=== PATIENT | male | born 1985 | race Caucasian/White ===

== ENCOUNTER 2019-05-21 02:15 | Emergency (ER) | payer SELFPAY ==
[2019-05-21 02:25] VITALS: BP 150/97
[2019-05-21 02:59] LABS: MUDS CUTOFF CONCENTRATIONS CUTOFF CONC BELOW:
--- NOTE | 2019-05-21 03:06 | ED Physician Documentation ---
PD HPI CHEST PAIN - Stated complaint Stated Complaint: CP/VOMITING - Chief complaint Chief Complaint: Cardiac - History obtained from History obtained from: Patient - History of Present Illness Timing - onset: How many minutes ago (25), Today Timing - onset during: Light activity (getting ready for bed. Denies drug use. Onset of chest pain and dyspnea, feeling anxious.) Timing - details: Abrupt onset, Still present Quality: Tightness, Aching Location: Left chest Radiation: Neck Improved by: No: Rest Worsened by: No: Inspiration Associated symptoms: Shortness of air. No: Nausea, Cough Similar symptoms before: Has not had sx before Review of Systems Unable to obtain: Uncooperative (he was not wanting to answer many questions.) PD PAST MEDICAL HISTORY - Past Medical History Cardiovascular: None Respiratory: None - Allergies Allergies/Adverse Reactions: Allergies Allergy/AdvReac Type Severity Reaction Status Date / Time No Known Drug Allergies Allergy Verified 05/21/19 02:25 - Social History Does the pt smoke?: Yes Does the pt drink ETOH?: Yes Does the pt have substance abuse?: Yes Substance Use and Type: Marijuana, Other (he denies meth use) PD ED PE NORMAL - Vitals Vital signs reviewed: Yes - General General: Alert and oriented X 3, Well developed/nourished, Other (Anxious and tachycardic) - HEENT HEENT: Atraumatic - Cardiac Cardiac: No: RRR (tachycardic but regular) - Respiratory Respiratory: Clear bilaterally - Derm Derm: Normal color, Warm and dry - Neuro Neuro: Alert and oriented X 3, No motor deficit, Normal speech Eye Opening: Spontaneous Motor: Obeys Commands Verbal: Oriented GCS Score: 15 - Psych Psych: No: Normal affect (anxious) Results - Vitals Vitals: Vital Signs - 24 hr 05/21/19 02:23 Temperature 37.0 C Heart Rate 105 H Respiratory 19 Rate Blood Pressure 150/97 H O2 Saturation 97 Oxygen O2 Source Room air - EKG (time done) 02:30 Rate: Rate (enter#) (103) Rhythm: Sinus tachycardia, Other (lots of motion artifact.) [place]: Normal Intervals: Normal [place] QRS: Normal Ischemia: Normal ST segments. No: ST elevation c/w ischemia, ST depression - Labs Labs: Laboratory Tests 05/21/19 02:15 Urine Opiates Screen NEGATIVE Ur Oxycodone Screen NEGATIVE Urine Methadone Screen NEGATIVE Ur Propoxyphene Screen NEGATIVE Ur Barbiturates Screen NEGATIVE Ur Tricyclics Screen NEGATIVE Ur Phencyclidine Scrn NEGATIVE Ur Amphetamine Screen POSITIVE H U Methamphetamines Scrn POSITIVE H U Benzodiazepines Scrn NEGATIVE Urine Cocaine Screen NEGATIVE U Cannabinoids Screen POSITIVE H PD MEDICAL DECISION MAKING - ED course Complexity details: re-evaluated patient (Patient is having some chest discomfort tachycardia and anxious. Presume its related to substance abuse and drug side effects. He does seem stable and is alert and oriented adequately to have the choice to leave without any further treatment or evaluation. He is encouraged to return if he has worsening symptoms. He is encouraged not to use drugs.), considered differential (As I went into see the patient, he was actually feeling that he wanted to be leaving. His chest discomfort was improving. We talked briefly and he was oriented and conversant. He was very anxious. He is still somewhat tachycardic but oxygenation and blood pressure were adequate. He reiterated that he at this point would prefer to just be discharged and leave the hospital. I offered doing some other tests for him to ensure no signs of heart injury or problems and also to provide medication to help with the anxiety and discomfort. He affirmed that he would rather just leave.), d/w patient Departure - Departure Disposition: ED [place] Clinical Impression: Atypical chest pain, Anxiety Condition: Stable Record reviewed to determine appropriate education?: Yes Instructions: ED Chest Pain Atypical Unkn Cause Comments: Return if you decide you would like further evaluation of your chest discomfort. Stay well-hydrated. We are happy to further treat and assess you if you are having continued symptoms.
[2019-05-21 03:11] LABS: AMPHETAMINE SCREEN,URINE POSITIVE (NEGATIVE); BENZODIAZEPINES SCREEN, URINE NEGATIVE (NEGATIVE); COCAINE SCREEN URINE NEGATIVE (NEGATIVE); METHADONE SCREEN, URINE NEGATIVE (NEGATIVE); METHAMPHETAMINES SCREEN, URINE POSITIVE (NEGATIVE); OPIATE SCREEN, URINE NEGATIVE (NEGATIVE); OXYCODONE SCREEN, URINE NEGATIVE (NEGATIVE); PROPOXYPHENE SCREEN, URINE NEGATIVE (NEGATIVE); TRICYCLIC ANTIDEPRESSANT,URINE NEGATIVE (NEGATIVE)
== END 2019-05-21 03:30 | disposition left against medical advice (07) ==
LOC: ED 02:15
DX: R07.89 Other chest pain (principal); F41.9 Anxiety disorder, unspecified; R00.0 Tachycardia, unspecified; F17.200 Nicotine dependence, unspecified, uncomplicated
CPT/HCPCS: 80306; 93005; 99281; 99284

== ENCOUNTER 2020-02-16 03:48 | Emergency (ER) | payer SELFPAY ==
--- NOTE | 2020-02-16 03:51 | ED Physician Documentation ---
History of Present Illness - Stated complaint Stated Complaint: SOA - History obtained from History obtained from: Police (patient eloped prior to my evaluation. per police they state they brought him in because they found him arguing in the road with a friend. the remainder of the history is unknown as the patient has eloped prior to my evaluation of this patient.) Review of Systems Unable to obtain: Other (patient eloped) PD PAST MEDICAL HISTORY - Past Medical History Cardiovascular: None Respiratory: None - Allergies Allergies/Adverse Reactions: Allergies Allergy/AdvReac Type Severity Reaction Status Date / Time No Known Drug Allergies Allergy Verified 05/21/19 02:25 - Social History Does the pt smoke?: Yes Does the pt drink ETOH?: Yes Does the pt have substance abuse?: Yes Results - Vitals Vitals: Oxygen O2 Source Room air PD MEDICAL DECISION MAKING - ED course Complexity details: other (patient eloped) Departure - Departure Disposition: ED El[facility]
== END 2020-02-16 04:01 | disposition left against medical advice (07) ==
LOC: ED 03:48
DX: Z53.21 Procedure and treatment not carried out due to patient leaving prior to being seen by health care provider (principal)

== ENCOUNTER 2020-05-02 11:00 | Emergency (ER) | payer SELFPAY ==
--- NOTE | 2020-05-02 12:05 | ED Physician Documentation ---
PD HPI MHE - Stated complaint Stated Complaint: MHE - Chief complaint Chief Complaint: MHE - History obtained from History obtained from: Patient - Additional information Additional information: 34-year-old gentleman brought-ite brought in by [place] [employer] for an involuntary mental health evaluation. Per written report from the police pilot he was walking in the middle of the street, screaming and threatening people. Patient is uncooperative with me does not want to talk to me. Says he is just exhausted. Denies any mental health history although he is barely talking when he says this. Review of Systems Unable to obtain: Uncooperative PD PAST MEDICAL HISTORY - Past Medical History Cardiovascular: None Respiratory: None - Present Medications Home Medications: Ambulatory Orders Medication Instructions Recorded Confirmed Home Medications Unobtainable 02/16/20 02/16/20 [HOME MEDICATIONS UNOBTAINABLE] - Allergies Allergies/Adverse Reactions: Allergies Allergy/AdvReac Type Severity Reaction Status Date / Time No Known Drug Allergies Allergy Verified 02/16/20 04:01 - Social History Does the pt smoke?: Yes Does the pt drink ETOH?: Yes Does the pt have substance abuse?: Yes PD ED PE NORMAL - Vitals Vital signs reviewed: Yes - General General: No acute distress, Other (He is uncooperative meet with me, says he just wants to sleep and keeping his eyes closed) - HEENT HEENT: PERRL. No: EOMI (? won't cooperate) - Neck Neck: Supple, no meningeal sign, No bony TTP - Cardiac Cardiac: RRR, No murmur - Respiratory Respiratory: No respiratory distress, Clear bilaterally - Abdomen Abdomen: Soft, Non tender - Back Back: No CVA TTP, No spinal TTP - Derm Derm: Normal color, Warm and dry - Extremities Extremities: No edema, No calf tenderness / cord - Neuro Motor: Obeys Commands Results - Vitals Vitals: Vital Signs - 24 hr 05/02/20 05/02/20 11:05 11:09 Temperature 36.7 C 36.7 C Heart Rate 98 98 Respiratory 18 18 Rate Blood Pressure 133/85 H 133/85 H O2 Saturation 99 99 Oxygen O2 Source Room air - Labs Labs: Laboratory Tests 05/02/20 05/02/20 05/02/20 14:31 14:33 14:33 WBC 7.4 RBC 3.77 L Hgb 13.0 L Hct 39.4 L MCV 104.5 H MCH 34.5 H MCHC 33.0 RDW 12.9 Plt Count 301 MPV 9.7 Neut # (Auto) 4.5 Lymph # (Auto) 2.1 [place] # (Auto) 0.7 Eos # (Auto) 0.1 Baso # (Auto) 0.0 Absolute Nucleated RBC 0.00 Nucleated RBC % 0.0 Sodium 144 Potassium 4.2 Chloride 110 Carbon Dioxide 28 Anion Gap 6.0 BUN 21 H Creatinine 0.9 Estimated GFR (MDRD) 97 Glucose 103 H Calcium 9.1 Total Bilirubin 0.8 AST 52 H ALT 61 H Alkaline Phosphatase 68 Total Creatine Kinase 382 H Total Protein 6.6 L Albumin 3.7 Globulin 2.9 Albumin/Globulin Ratio 1.3 Lipase 26 TSH Urine Color Urine Clarity Urine pH Ur Specific [place] Urine Protein Urine Glucose (UA) Urine Ketones Urine Occult Blood Urine Nitrite Urine Bilirubin Urine Urobilinogen Ur Leukocyte Esterase Ur Microscopic Review Urine Culture Comments Salicylates < 6.0 Urine Opiates Screen Ur Oxycodone Screen Urine Methadone Screen Ur Propoxyphene Screen Acetaminophen < 10 L Ur Barbiturates Screen Ur Tricyclics Screen Ur Phencyclidine Scrn Ur Amphetamine Screen U Methamphetamines Scrn U Benzodiazepines Scrn Urine Cocaine Screen U Cannabinoids Screen Ethyl Alcohol < 5.0 05/02/20 05/02/20 14:33 16:23 WBC RBC Hgb Hct MCV MCH MCHC RDW Plt Count MPV Neut # (Auto) Lymph # (Auto) [place] # (Auto) Eos # (Auto) Baso # (Auto) Absolute Nucleated RBC Nucleated RBC % Sodium Potassium Chloride Carbon Dioxide Anion Gap BUN Creatinine Estimated GFR (MDRD) Glucose Calcium Total Bilirubin AST ALT Alkaline Phosphatase Total Creatine Kinase Total Protein Albumin Globulin Albumin/Globulin Ratio Lipase TSH 1.91 Urine Color YELLOW Urine Clarity CLEAR Urine pH 7.5 Ur Specific [place] 1.020 Urine Protein NEGATIVE Urine Glucose (UA) NEGATIVE Urine Ketones NEGATIVE Urine Occult Blood NEGATIVE Urine Nitrite NEGATIVE Urine Bilirubin NEGATIVE Urine Urobilinogen 1 (NORMAL) Ur Leukocyte Esterase NEGATIVE Ur Microscopic Review NOT INDICATED Urine Culture Comments NOT INDICATED Salicylates Urine Opiates Screen NEGATIVE Ur Oxycodone Screen NEGATIVE Urine Methadone Screen NEGATIVE Ur Propoxyphene Screen NEGATIVE Acetaminophen Ur Barbiturates Screen NEGATIVE Ur Tricyclics Screen NEGATIVE Ur Phencyclidine Scrn NEGATIVE Ur Amphetamine Screen POSITIVE H U Methamphetamines Scrn NEGATIVE U Benzodiazepines Scrn NEGATIVE Urine Cocaine Screen NEGATIVE U Cannabinoids Screen POSITIVE H Ethyl Alcohol PD MEDICAL DECISION MAKING - ED course ED course: 34-year-old gentleman Presents via police for involuntary mental health evaluation. On initial evaluation he was sleepy, uncooperative. Review of the chart and presentation are concerning for methamphetamine abuse. He woke up a bit and was able to talk to the DCR who found him to be psychotic and probably acutely gravely ill. Unfortunately she was not able to detain as there are no facilities available tonight for him to be detained to and as such he is boarding in the emergency department pending placement. Departure - Departure Clinical Impression: Amphetamine abuse Psychosis Qualifiers: Psychosis type: unspecified psychosis type Qualified Code(s): F29 - Unspecified psychosis not due to a substance or known physiological condition Condition: Stable
[2020-05-02 14:39] LABS: BASOPHILS % (AUTO) 0.5 %; EOSINOPHILS # (AUTO) 0.1 10^3/uL (0.0-0.7); EOSINOPHILS % (AUTO) 1.5 %; LYMPHOCYTES # (AUTO) 2.1 10^3/uL (1.5-3.5); LYMPHOCYTES % (AUTO) 28.3 %; MEAN CORPUSCULAR HEMOGLOBIN 34.5 pg (27.0-31.0); MEAN CORPUSCULAR VOLUME 104.5 fL (80.0-94.0); MEAN PLATELET VOLUME 9.7 fL (7.4-11.4); MONOCYTES # (AUTO) 0.7 10^3/uL (0.0-1.0); NEUTROPHILS # (AUTO) 4.5 10^3/uL (1.5-6.6); NEUTROPHILS % (AUTO) 60.4 %; PLT - PLATELET COUNT 301 10^3/uL (130-450); RED BLOOD COUNT 3.77 10^6/uL (4.70-6.10); RED CELL DISTRIBUTION WIDTH 12.9 % (12.0-15.0); WHITE BLOOD COUNT 7.4 x10^3/uL (4.8-10.8)
[2020-05-02 14:51] LABS: ACETAMINOPHEN < 10 ug/mL (10-30); ALBUMIN 3.7 g/dL (3.2-5.5); ALBUMIN/GLOBULIN RATIO 1.3 (1.0-2.2); ALKALINE PHOSPHATASE 68 IU/L (42-121); ALT ALANINE AMINOTRANSFERASE 61 IU/L (10-60); AST ASPARTATE AMINOTRANSFERASE 52 IU/L (10-42); BILIRUBIN,TOTAL 0.8 mg/dL (0.2-1.0); BUN - BLOOD UREA NITROGEN 21 mg/dL (6-20); CALCIUM 9.1 mg/dL (8.5-10.3); CARBON DIOXIDE - CO2 28 mmol/L (21-32); CHLORIDE 110 mmol/L (101-111); CREATININE 0.9 mg/dL (0.6-1.2); GLUCOSE 103 mg/dL (70-100); LIPASE 26 U/L (22-51); SALICYLATE < 6.0 mg/dL; SODIUM 144 mmol/L (135-145); TOTAL PROTEIN 6.6 g/dL (6.7-8.2)
[2020-05-02 16:32] LABS: BILIRUBIN,URINE NEGATIVE (NEGATIVE); GLUCOSE, URINE (UA) NEGATIVE (NEGATIVE); KETONES,URINE (UA) NEGATIVE (NEGATIVE); LEUKOCYTE ESTERASE, URINE NEGATIVE (NEGATIVE); MUDS CUTOFF CONCENTRATIONS CUTOFF CONC BELOW:; NITRITE,URINE NEGATIVE (NEGATIVE); OCCULT BLOOD,URINE NEGATIVE (NEGATIVE); PH,URINE 7.5 PH (5.0-7.5); PROTEIN,URINE NEGATIVE (NEGATIVE); UROBILINOGEN,URINE 1 (NORMAL) E.U./dL (NORMAL)
[2020-05-02 16:34] LABS: CLARITY,URINE CLEAR (CLEAR)
[2020-05-02 16:43] LABS: AMPHETAMINE SCREEN,URINE POSITIVE (NEGATIVE); BENZODIAZEPINES SCREEN, URINE NEGATIVE (NEGATIVE); COCAINE SCREEN URINE NEGATIVE (NEGATIVE); METHADONE SCREEN, URINE NEGATIVE (NEGATIVE); METHAMPHETAMINES SCREEN, URINE NEGATIVE (NEGATIVE); OPIATE SCREEN, URINE NEGATIVE (NEGATIVE); OXYCODONE SCREEN, URINE NEGATIVE (NEGATIVE); PROPOXYPHENE SCREEN, URINE NEGATIVE (NEGATIVE); TRICYCLIC ANTIDEPRESSANT,URINE NEGATIVE (NEGATIVE)
[2020-05-03] MEDS ORDERED: LORazepam 1 MG TABLET PO STA (05:45)
[2020-05-03] MEDS ORDERED: OLANZapine ODT 5 MG TABLET TL STA (16:12)
--- NOTE | 2020-05-03 16:27 | ED Physician Documentation ---
ED Addendum - Addendum Addendum: 05/03/20 16:26 He remains persistently psychotic today but generally cooperative. At times very slightly agitated, accepted oral Zyprexa for same. Seen by the DCR and been trying to place. 1 facility requested an EKG, EKG done at 1621 hrs. disclosed a normal sinus rhythm with a rate of 80, normal intervals. No ST-T abnormalities. 05/03/20 18:05 DCR arranged for a bed at [facility] under the care of Dr. Bowen. Cobras were completed and he is stable for transport Disposition transfer to psychiatric facility, [facility] behavioral Condition stable Diagnosis psychosis 05/03/20 21:52 Prior to discharge she became much more belligerent and was screaming in the halls. Required some chemical anxiolysis to facilitate transport and was administered IM Versed and Haldol.
[2020-05-03 18:45] VITALS: BP 122/86
[2020-05-03] MEDS ORDERED: MIDAZOLAM 2 MG/2 ML VIAL IM STA (20:44)
[2020-05-03] MEDS ORDERED: HALOPERIDOL 5 MG/ML VIAL IM STA (20:44)
== END 2020-05-03 21:10 ==
LOC: ED 11:00
DX: F15.10 Other stimulant abuse, uncomplicated (principal); F29 Unspecified psychosis not due to a substance or known physiological condition; Z20.828 Contact with and (suspected) exposure to other viral communicable diseases; Z59.0 Homelessness; Z75.1 Person awaiting admission to adequate facility elsewhere
CPT/HCPCS: 36415; 80320; 80329; 81003; 82550; 83690; 87635; 93005; 96372; 99281; 99285; A9270; J8499; 80053; 80306; 80307; 81001; 84443; 85025; 87086

== ENCOUNTER 2020-05-15 23:35 | Emergency (ER) | payer MEDICAID ==
[2020-05-15] MEDS ORDERED: OLANZapine 10 MG VIAL IM STA (23:37)
--- NOTE | 2020-05-15 23:37 | ED Physician Documentation ---
PD HPI MHE - Stated complaint Stated Complaint: GAIL - History obtained from History obtained from: Other (patient unable to contribute to HPI/ROS due to violent, rambling, uncooperative) - History of Present Illness Primary symptom: Aggressive behavior Recently seen: Emergency Dept - Additional information Additional information: brought in by police. Patient is violent and uncooperative, rambling and not answering questions with appropriate answers. Per police (in ED at bedside), an acquaintance of patient had called 911 to report patient had allegedly stolen some of their property. Police found patient outside of [facility] where he was acting odd, violent, uncooperative. Review of Systems Unable to obtain: Uncooperative PD PAST MEDICAL HISTORY - Past Medical History Cardiovascular: None Respiratory: None - Present Medications Home Medications: Ambulatory Orders Medication Instructions Recorded Confirmed Home Medications Unobtainable 02/16/20 02/16/20 [HOME MEDICATIONS UNOBTAINABLE] - Allergies Allergies/Adverse Reactions: Allergies Allergy/AdvReac Type Severity Reaction Status Date / Time No Known Drug Allergies Allergy Verified 02/16/20 04:01 - Social History Does the pt smoke?: Yes Smoking Status: Current every day smoker Does the pt drink ETOH?: Yes Does the pt have substance abuse?: Yes PD ED PE NORMAL - Vitals Vital signs reviewed: Yes - General General: Well developed/nourished, Other (awake, alert, rambling; making odd statements, verbally abusive with staff at times. he is combative on arrival, will not follow any commands, trying to get off stretcher) - HEENT HEENT: Atraumatic, Moist mucous membranes - Neck Neck: Supple, no meningeal sign - Cardiac Cardiac: No murmur - Respiratory Respiratory: No respiratory distress, Clear bilaterally - Abdomen Abdomen: Soft, Non distended - Derm Derm: Normal color, Warm and dry - Extremities Extremities: No tenderness to palpate, Normal ROM s pain - Free text exam Free text exam: most of physical exam was performed subsequent to IM zyprexa and resulting sedation PD ED PE EXPANDED - Cardiac Cardiac: Tachy, Regular Rhythm - Psych Psych: Agitated, Combative, Pressured speech Results - Vitals Vitals: Vital Signs - 24 hr 05/15/20 05/16/20 05/16/20 23:43 00:05 00:26 Temperature 36.5 C 36.7 C Heart Rate 137 H 112 H 104 H Respiratory 24 20 17 Rate Blood Pressure 153/99 H 142/98 H 121/69 O2 Saturation 97 97 95 05/16/20 05/16/20 05/16/20 00:30 00:45 01:00 Temperature Heart Rate 101 H 93 82 Respiratory 16 16 13 Rate Blood Pressure 120/68 113/75 109/74 O2 Saturation 97 97 97 05/16/20 05/16/20 05/16/20 01:15 01:30 01:45 Temperature 36.9 C Heart Rate 99 91 97 Respiratory 12 14 15 Rate Blood Pressure 137/118 H 109/81 H O2 Saturation 98 97 96 05/16/20 05/16/20 05/16/20 02:00 02:15 02:30 Temperature 36.7 C Heart Rate 93 93 88 Respiratory 15 14 14 Rate Blood Pressure 109/69 111/64 110/62 O2 Saturation 96 96 96 05/16/20 05/16/20 05/16/20 02:45 03:00 03:15 Temperature 36.6 C Heart Rate 123 H 78 78 Respiratory 24 13 14 Rate Blood Pressure 115/80 110/80 O2 Saturation 100 97 98 05/16/20 05/16/20 05/16/20 03:30 03:45 04:00 Temperature 36.6 C Heart Rate 85 103 H 76 Respiratory 13 17 13 Rate Blood Pressure 108/78 107/83 H 97/64 O2 Saturation 100 100 100 05/16/20 05/16/20 05/16/20 04:15 08:08 08:45 Temperature 36.2 C L Heart Rate 81 78 60 Respiratory 13 12 12 Rate Blood Pressure 99/61 106/82 H 113/85 H O2 Saturation 100 100 100 05/16/20 12:26 Temperature 36.1 C L Heart Rate 72 Respiratory 16 Rate Blood Pressure 111/86 H O2 Saturation 100 Oxygen O2 Source Room air - Labs Labs: Laboratory Tests 05/15/20 05/15/20 05/15/20 23:59 23:59 23:59 WBC 7.9 RBC 3.50 L Hgb 12.2 L Hct 36.6 L MCV 104.6 H MCH 34.9 H MCHC 33.3 RDW 12.6 Plt Count 205 MPV 11.1 Neut # (Auto) Not Reportable Lymph # (Auto) Not Reportable [place] # (Auto) Not Reportable Eos # (Auto) Not Reportable Baso # (Auto) Not Reportable Absolute Nucleated RBC Not Reportable Total Counted 100 Band Neuts % (Manual) 0 Abnorm Lymph % (Manual) 0 Nucleated RBC % Not Reportable Neutrophils # (Manual) 5.1 Lymphocytes # (Manual) 2.5 Monocytes # (Manual) 0.3 Eosinophils # (Manual) 0.0 Basophils # (Manual) 0.0 Differential Comment MANUAL DIFFERENTIAL WBC Morphology NORMAL APPEARANCE Platelet Estimate NORMAL (130-450,000) Platelet Morphology NORMAL APPEARANCE RBC Morph Micro Appear NORMAL APPEARANCE Sodium 141 Potassium 3.5 Chloride 108 Carbon Dioxide 25 Anion Gap 8.0 BUN 21 H Creatinine 1.0 Estimated GFR (MDRD) 86 L Glucose 146 H Calcium 9.1 Total Bilirubin 0.8 AST 52 H ALT 66 H Alkaline Phosphatase 61 Total Protein 7.0 Albumin 3.7 Globulin 3.3 Albumin/Globulin Ratio 1.1 Lipase 20 L TSH 1.42 Urine Color Urine Clarity Urine pH Ur Specific [place] Urine Protein Urine Glucose (UA) Urine Ketones Urine Occult Blood Urine Nitrite Urine Bilirubin Urine Urobilinogen Ur Leukocyte Esterase Ur Microscopic Review Urine Culture Comments Salicylates < 6.0 Urine Opiates Screen Ur Oxycodone Screen Urine Methadone Screen Ur Propoxyphene Screen Acetaminophen < 10 L Ur Barbiturates Screen Ur Tricyclics Screen Ur Phencyclidine Scrn Ur Amphetamine Screen U Methamphetamines Scrn U Benzodiazepines Scrn Urine Cocaine Screen U Cannabinoids Screen Ethyl Alcohol < 5.0 05/16/20 02:45 WBC RBC Hgb Hct MCV MCH MCHC RDW Plt Count MPV Neut # (Auto) Lymph # (Auto) [place] # (Auto) Eos # (Auto) Baso # (Auto) Absolute Nucleated RBC Total Counted Band Neuts % (Manual) Abnorm Lymph % (Manual) Nucleated RBC % Neutrophils # (Manual) Lymphocytes # (Manual) Monocytes # (Manual) Eosinophils # (Manual) Basophils # (Manual) Differential Comment WBC Morphology Platelet Estimate Platelet Morphology RBC Morph Micro Appear Sodium Potassium Chloride Carbon Dioxide Anion Gap BUN Creatinine Estimated GFR (MDRD) Glucose Calcium Total Bilirubin AST ALT Alkaline Phosphatase Total Protein Albumin Globulin Albumin/Globulin Ratio Lipase TSH Urine Color YELLOW Urine Clarity CLEAR Urine pH 6.5 Ur Specific [place] 1.025 Urine Protein NEGATIVE Urine Glucose (UA) NEGATIVE Urine Ketones NEGATIVE Urine Occult Blood NEGATIVE Urine Nitrite NEGATIVE Urine Bilirubin NEGATIVE Urine Urobilinogen 0.2 (NORMAL) Ur Leukocyte Esterase NEGATIVE Ur Microscopic Review NOT INDICATED Urine Culture Comments NOT INDICATED Salicylates Urine Opiates Screen NEGATIVE Ur Oxycodone Screen NEGATIVE Urine Methadone Screen NEGATIVE Ur Propoxyphene Screen NEGATIVE Acetaminophen Ur Barbiturates Screen NEGATIVE Ur Tricyclics Screen NEGATIVE Ur Phencyclidine Scrn NEGATIVE Ur Amphetamine Screen POSITIVE H U Methamphetamines Scrn POSITIVE H U Benzodiazepines Scrn NEGATIVE Urine Cocaine Screen NEGATIVE U Cannabinoids Screen POSITIVE H Ethyl Alcohol PD MEDICAL DECISION MAKING - ED course Complexity details: reviewed old records, reviewed results, re-evaluated patient, considered differential, d/w family ED course: Patient required four-point restraints immediately on arrival due to combative behavior; he was subsequently given IM zyprexa with resulting sedation. He was evaluated in this ED 05/02/20, transferred the following day to [facility] 3:30 AM: patient initially responded to zyprexa with appropriate, desired level of sedation. He subsequently began to become more awake and active, pulling against the restraints and yelling and moaning (not intelligibly). He did not calm or respond to attempts at redirection. Lights dimmed to reduce stimuli. Despite this, he continued to thrash against the restraints and yell and thus given haldol and versed IM. This resulted in improvement (less fighting against restraints, decreased moaning and yelling), but he still was fighting restraints on reevaluation and thus given 2mg IM ativan and restraints reordered for patient and staff safety. Care of patient turned over to Dr. Paz at end of my shift pending disposition and SW consult.
[2020-05-15] MEDS ORDERED: OLANZapine 10 MG VIAL IM ONE (23:48)
[2020-05-15] MEDS ORDERED: WATER FOR INJECTION,STERILE 10 ML ONE (23:48)
[2020-05-16 00:21] LABS: BASOPHILS % (AUTO) 0.5 %; EOSINOPHILS % (AUTO) 1.1 %; HGB - HEMOGLOBIN 12.2 g/dL (14.0-18.0); MEAN CORPUSCULAR HEMOGLOBIN 34.9 pg (27.0-31.0); MEAN CORPUSCULAR HGB CONC 33.3 g/dL (32.0-36.0); MEAN CORPUSCULAR VOLUME 104.6 fL (80.0-94.0); MEAN PLATELET VOLUME 11.1 fL (7.4-11.4); MONOCYTES % (AUTO) 6.9 %; NEUTROPHILS % (AUTO) 59.1 %; PLT - PLATELET COUNT 205 10^3/uL (130-450); RED CELL DISTRIBUTION WIDTH 12.6 % (12.0-15.0); WHITE BLOOD COUNT 7.9 x10^3/uL (4.8-10.8)
[2020-05-16 00:30] LABS: ACETAMINOPHEN < 10 ug/mL (10-30); ALBUMIN 3.7 g/dL (3.2-5.5); ALBUMIN/GLOBULIN RATIO 1.1 (1.0-2.2); ALKALINE PHOSPHATASE 61 IU/L (42-121); ALT ALANINE AMINOTRANSFERASE 66 IU/L (10-60); AST ASPARTATE AMINOTRANSFERASE 52 IU/L (10-42); BILIRUBIN,TOTAL 0.8 mg/dL (0.2-1.0); BUN - BLOOD UREA NITROGEN 21 mg/dL (6-20); CALCIUM 9.1 mg/dL (8.5-10.3); CARBON DIOXIDE - CO2 25 mmol/L (21-32); CHLORIDE 108 mmol/L (101-111); GLUCOSE 146 mg/dL (70-100); LIPASE 20 U/L (22-51); SALICYLATE < 6.0 mg/dL; SODIUM 141 mmol/L (135-145)
[2020-05-16 00:37] LABS: ABNORMAL LYMPHS % (MANUAL) 0 %; BAND NEUTROPHILS % (MANUAL) 0 %
[2020-05-16 00:38] LABS: LYMPHOCYTES # (MANUAL) 2.5 10^3/uL (1.5-3.5); LYMPHOCYTES % (MANUAL) 32 %; MONOCYTES # (MANUAL) 0.3 10^3/uL (0.0-1.0)
[2020-05-16 00:39] LABS: DIFFERENTIAL COMMENT MANUAL DIFFERENTIAL; PLATELET ESTIMATE, MANUAL NORMAL (130-450,000) (NORMAL); PLATELET MORPHOLOGY NORMAL APPEARANCE (NORMAL); RBC MORPHOLOGY (MULTIPLE) NORMAL APPEARANCE (NORMAL)
[2020-05-16] MEDS ORDERED: HALOPERIDOL 5 MG/ML VIAL IM STA (01:20)
[2020-05-16] MEDS ORDERED: MIDAZOLAM 2 MG/2 ML VIAL IM STA (01:21)
[2020-05-16] MEDS ORDERED: LORazepam 2 MG/ML VIAL IM STA (02:50)
[2020-05-16 02:53] LABS: MUDS CUTOFF CONCENTRATIONS CUTOFF CONC BELOW:
[2020-05-16 02:55] LABS: BILIRUBIN,URINE NEGATIVE (NEGATIVE); GLUCOSE, URINE (UA) NEGATIVE (NEGATIVE); KETONES,URINE (UA) NEGATIVE (NEGATIVE); LEUKOCYTE ESTERASE, URINE NEGATIVE (NEGATIVE); NITRITE,URINE NEGATIVE (NEGATIVE); OCCULT BLOOD,URINE NEGATIVE (NEGATIVE); PH,URINE 6.5 PH (5.0-7.5); PROTEIN,URINE NEGATIVE (NEGATIVE); UROBILINOGEN,URINE 0.2 (NORMAL) E.U./dL (NORMAL)
[2020-05-16 02:56] LABS: CLARITY,URINE CLEAR (CLEAR)
[2020-05-16 03:07] LABS: AMPHETAMINE SCREEN,URINE POSITIVE (NEGATIVE); BENZODIAZEPINES SCREEN, URINE NEGATIVE (NEGATIVE); COCAINE SCREEN URINE NEGATIVE (NEGATIVE); METHADONE SCREEN, URINE NEGATIVE (NEGATIVE); METHAMPHETAMINES SCREEN, URINE POSITIVE (NEGATIVE); OPIATE SCREEN, URINE NEGATIVE (NEGATIVE); OXYCODONE SCREEN, URINE NEGATIVE (NEGATIVE); PROPOXYPHENE SCREEN, URINE NEGATIVE (NEGATIVE); TRICYCLIC ANTIDEPRESSANT,URINE NEGATIVE (NEGATIVE)
[2020-05-16] MEDS ORDERED: SODIUM CHLORIDE 0.9% 1,000 ML IV STA (03:16)
--- NOTE | 2020-05-16 11:36 | ED Physician Documentation ---
ED Addendum - Addendum Addendum: 05/16/20 11:35 The patient has been still in restraints this morning but they are slowly easing off as the patient has been not uncooperative per se. He is pulls at his restraints at times but initially seem to be just related to still medicated. He is arousable and conversant but not interacting well enough to call safe. Social work talked with him and felt DCR evaluation was appropriate
--- NOTE | 2020-05-16 17:36 | ED Physician Documentation ---
ED Addendum - Addendum Addendum: 05/16/20 17:34 The patient was evaluated by older adult social work specialist deferred to DCR. The DCR Susanna talked with the patient and it was not clear that he was cooperative and coherent enough for his own safety and some concern for inadvertent injury of others just because he is unaware of his aggressiveness. He did not seem purposefully wanting to hurt others nor suicidal. However she did feel that hospitalization may be appropriate. However there were no beds available so at this point Susanna the DCR is doing a walk away. We would need to reassess the patient as he is improving from the sobering from his meth. He is able to eat and is talking with nursing staff and is out of restraints. At this point we would need to reassess if he wished to be discharged. However will otherwise assume he will stay in the ER until tomorrow with reassessment by social work and potentially DCR.
--- NOTE | 2020-05-17 15:06 | ED Physician Documentation ---
ED Addendum - Addendum Addendum: Patient had rested through the night. Not on any scheduled PO meds. Ate breakfast. Doing okay into afternoon. Did get up to go to bathroom and was verbally antagonistic with Tech. Verbally directed back to the room. Can give PO meds for him. SW and DCR in to see patient again and looking at safe/best plan for him. 05/17/20 15:03
[2020-05-17] MEDS ORDERED: OLANZapine ODT 5 MG TABLET TL ONE (15:14)
--- NOTE | 2020-05-17 23:38 | ED Physician Documentation ---
ED Addendum - Addendum Addendum: 05/17/20 23:29 34 y/o male with recent meth intoxication and aggressive behavior has been in the ED 48 hours and remains delusional and has hallucinations. He has a prior halfway recently and AYSE Mullins has done a walk away when she was not able to secure a bed for the patient. Beds are expected to be available tomorrow and the recommendation is to keep the patient in the ED. The day shift physician recommends not letting the patient elope as he has had aggressive behavior in the ED today as well. His mother was able to provide further background history in that both his father and grandmother suffered from mental illness and his grandmother in a psychiatric unit where she resided for years. The mother also notes that she has observed behavior in the patient off of meth consistent with responding to internal stimuli. This evening he is asleep and slept last night as well. With the walk away today telepsych is consulted for medication recommendation until a bed can be found.
[2020-05-18 16:43] VITALS: BP 116/80
== END 2020-05-18 17:21 ==
LOC: ED 23:35
DX: F15.929 Other stimulant use, unspecified with intoxication, unspecified (principal); F91.9 Conduct disorder, unspecified; R45.1 Restlessness and agitation; Z78.1 Physical restraint status; F22 Delusional disorders; R00.0 Tachycardia, unspecified; F17.200 Nicotine dependence, unspecified, uncomplicated; Z20.828 Contact with and (suspected) exposure to other viral communicable diseases
CPT/HCPCS: 36415; 51701; 80053; 80306; 80307; 80320; 80329; 81003; 83690; 84443; 85025; 87635; 93005; 96372; 99285; A9270; J2060; 81001; 87086

== ENCOUNTER 2022-10-28 14:28 | Outpatient (CLI) | payer MEDICAID, OTHER | END 2022-10-28 23:59 | disposition critical access hospital (66) | LOC: EMS 14:28 | DX: Z04.6 Encounter for general psychiatric examination, requested by authority (principal); R46.2 Strange and inexplicable behavior; R45.1 Restlessness and agitation; Z78.1 Physical restraint status | CPT/HCPCS: A0425; A0429; A0999 ==

== ENCOUNTER 2022-10-28 14:44 | Emergency (ER) | payer MEDICAID ==
--- NOTE | 2022-10-28 14:57 | ED Physician Documentation ---
PD HPI MHE - Stated complaint Stated Complaint: MHE - History obtained from History obtained from: Patient, EMS - Additional information Additional information: 37-year-old gentleman brought in by paramedics for odd behavior. Reportedly was walking in the road and then digging in the dirt. [place] detained him on GAIL but does not accompany him. Patient has noted complaints. He feels he has been kidnapped. When I ask him if he has been using methamphetamines he states he "has not been using any substances more than the standard deviation." PD PAST MEDICAL HISTORY - Past Medical History Cardiovascular: None Respiratory: None - Present Medications Home Medications: Ambulatory Orders Medication Instructions Recorded Confirmed Home Medications Unobtainable 02/16/20 02/16/20 [HOME MEDICATIONS UNOBTAINABLE] - Allergies Allergies/Adverse Reactions: Allergies Allergy/AdvReac Type Severity Reaction Status Date / Time No Known Drug Allergies Allergy Verified 10/28/22 14:59 - Social History Does the pt smoke?: Yes Smoking Status: Current every day smoker Does the pt drink ETOH?: Yes Does the pt have substance abuse?: Yes PD ED PE NORMAL - Vitals Vital signs reviewed: Yes (Tachycardic and hypertensive) - General General: Alert and oriented X 3, No acute distress, Other (Disheveled) - HEENT HEENT: PERRL, EOMI - Neck Neck: Supple, no meningeal sign, No bony TTP - Cardiac Cardiac: No murmur - Respiratory Respiratory: No respiratory distress, Clear bilaterally - Abdomen Abdomen: Non tender - Derm Derm: No rash - Neuro Neuro: Alert and oriented X 3 Eye Opening: Spontaneous Motor: Obeys Commands Verbal: Oriented GCS Score: 15 - Psych Psych: Other (Tangential flighty speech, pressured) Results - Vitals Vitals: Vital Signs - 24 hr 10/28/22 14:55 Temperature 37.4 C Heart Rate 125 H Respiratory 22 Rate Blood Pressure 164/98 H O2 Saturation 98 Oxygen O2 Source Room air PD Medical Decision Making - ED course ED course: 37-year-old gentleman presents on an GAIL although unaccompanied by law enforcement. Plan was medical clearance with social work consult and DCR. Patient ended up eloping out of the department and I asked ED staff to call [facility] for notification. Departure - Departure Disposition: ED [place]
[2022-10-28 14:59] VITALS: BP 164/98
== END 2022-10-28 17:37 | disposition left against medical advice (07) ==
LOC: EDUNIT# → ED 14:44
DX: F91.9 Conduct disorder, unspecified (principal)
CPT/HCPCS: 80053; 80307; 80320; 80329; 82550; 83690; 83735; 84443; 85025; 99282; 99283

== ENCOUNTER 2023-05-26 00:15 | Outpatient (CLI) | payer MEDICAID | END 2023-05-26 23:59 | disposition critical access hospital (66) | LOC: EMS 00:15 | DX: R46.4 Slowness and poor responsiveness (principal); R53.83 Other fatigue; Z59.00 Homelessness unspecified | CPT/HCPCS: A0425; A0429; A0999 ==

== ENCOUNTER 2023-05-26 00:31 | Emergency (ER) | payer MEDICAID ==
--- NOTE | 2023-05-26 00:52 | ED Physician Documentation ---
History of Present Illness - Stated complaint Stated Complaint: AMS - History obtained from History obtained from: EMS - Additonal information Additional information: 37yo homeless male presents by EMS without complaint. Patient was sleeping in the [facility] parking lot when a terra Decker called 911. Patient denied complaints to EMS, however [facility] threatened to place the patient under an GAIL and patient agreed to be transported to ED. On arrival patient refusing all interventions, requesting that ED staff leave him alone and let him sleep. Review of Systems Unable to obtain: Uncooperative PD PAST MEDICAL HISTORY - Past Medical History Cardiovascular: None Respiratory: None - Present Medications Home Medications: Ambulatory Orders Medication Instructions Recorded Confirmed Home Medications Unobtainable 02/16/20 02/16/20 [HOME MEDICATIONS UNOBTAINABLE] - Allergies Allergies/Adverse Reactions: Allergies Allergy/AdvReac Type Severity Reaction Status Date / Time No Known Drug Allergies Allergy Verified 10/28/22 14:59 - Social History Does the pt smoke?: Yes Smoking Status: Current every day smoker Does the pt drink ETOH?: Yes Does the pt have substance abuse?: Yes PD ED PE NORMAL - Vitals Vital signs reviewed: Yes - General General: Alert and oriented X 3, No acute distress, Other (disheveled, hygiene poor) - HEENT HEENT: Atraumatic - Neck Neck: Supple, no meningeal sign - Cardiac Cardiac: RRR, Strong equal pulses - Respiratory Respiratory: No respiratory distress, Clear bilaterally - Abdomen Abdomen: Soft, Non tender, Non distended - Derm Derm: Normal color, Warm and dry - Extremities Extremities: No deformity, No tenderness to palpate, Normal ROM s pain - Neuro Neuro: Alert and oriented X 3, application development liaison 2-12 intact, No motor deficit, Normal speech - Psych Psych: Other (uncooperative) Results - Vitals Vitals: Oxygen O2 Source Room air PD Medical Decision Making - ED course Complexity details: re-evaluated patient, considered differential, d/w patient ED course: Patient sleeping in [facility] parking lot, [place] and 911 called by terra Decker. Patient has no complaints, refuses all care by ED staff, states he wants us to leave him alone and let him sleep. No emergent complaints at this time. Patient awake, alert, stable for discharge from ED. Departure - Departure Disposition: 01 Home, Self Care Clinical Impression: Homelessness unspecified Altered mental state Qualifiers: Altered mental status type: unspecified Qualified Code(s): R41.82 - Altered mental status, unspecified Condition: Stable Instructions: ED Drug Abuse General Comments: [facility] [address] [place] [facility] [id number] Forms: PCP List Discharge Date/Time: 05/26/23 02:49
== END 2023-05-26 02:49 | disposition home or self-care (01) ==
LOC: EDUNIT# → ED 00:31
DX: R41.82 Altered mental status, unspecified (principal); F17.200 Nicotine dependence, unspecified, uncomplicated; Z59.02 Unsheltered homelessness
CPT/HCPCS: 99282; 99283

== ENCOUNTER 2023-11-29 17:09 | Emergency (ER) | payer MEDICAID ==
[2023-11-29] MEDS: KETAMINE 500 MG/10 ML VIAL IM STA (17:29)
--- NOTE | 2023-11-29 17:44 | ED Physician Documentation ---
PD HPI MHE - Stated complaint Stated Complaint: GAIL/MHE - Chief complaint Chief Complaint: MHE - History obtained from History obtained from: Patient, Police - Additional information Additional information: Patient is a 38-year-old male brought in by police on an GAIL. The GAIL is for grave disability secondary to psychosis. Apparently the patient was found wandering in the street in between cars in traffic. The community psych social worker accompanied the patient with the police. She states that he is oriented to his name, but not to year or who the president is. Apparently has a long mental health history. Patient apparently has a history of methamphetamine abuse. He states he has not used any drugs. He is rambling, pressured speech. Review of Systems Unable to obtain: AMS, Uncooperative PD PAST MEDICAL HISTORY - Past Medical History Past Medical History: Yes Cardiovascular: None Respiratory: None - Past Surgical History Past Surgical History: No - Present Medications Home Medications: Ambulatory Orders Medication Instructions Recorded Confirmed Home Medications Unobtainable 02/16/20 11/29/23 [HOME MEDICATIONS UNOBTAINABLE] - Allergies Allergies/Adverse Reactions: Allergies Allergy/AdvReac Type Severity Reaction Status Date / Time No Known Drug Allergies Allergy Verified 11/29/23 19:05 - Social History Does the pt smoke?: Yes Smoking Status: Current every day smoker Does the pt drink ETOH?: Yes Does the pt have substance abuse?: Yes - Immunizations Immunizations are current?: No - POLST Patient has POLST: No PD ED PE NORMAL - Vitals Vital signs reviewed: Yes - General General: Other (Alert, oriented to person and place.) - HEENT HEENT: Atraumatic, PERRL, Moist mucous membranes - Neck Neck: Supple, no meningeal sign - Cardiac Cardiac: RRR, Strong equal pulses - Respiratory Respiratory: No respiratory distress, Clear bilaterally - Abdomen Abdomen: Soft, Non tender, Non distended - Back Back: No spinal TTP - Derm Derm: Warm and dry - Extremities Extremities: Normal ROM s pain - Neuro Neuro: Other (Alert, oriented to person and place, not to time) - Psych Psych: Other (Pressured speech, flight of ideas.) Results - Vitals Vitals: Vital Signs - 24 hr 11/29/23 11/29/23 11/29/23 17:12 17:30 17:48 Temperature 37.0 C Heart Rate 143 H 130 H 130 H Respiratory 20 20 20 Rate Blood Pressure 131/112 H 171/118 H 172/115 H O2 Saturation 97 98 100 11/29/23 11/29/23 11/29/23 18:00 18:15 18:45 Temperature Heart Rate 106 H 112 H 106 H Respiratory 16 18 14 Rate Blood Pressure 106/69 145/102 H 106/72 O2 Saturation 96 95 95 Oxygen O2 Source Room air - EKG (time done) 1746 EKG releavant findings:: EKG personally interpreted by author of this note. Relevant findings are: Rate: Rate (enter#) (130) Rhythm: Sinus tachycardia [place]: Normal Intervals: Normal NH QRS: Normal Ischemia: Normal ST segments - Labs Labs: Laboratory Tests 11/29/23 11/29/23 11/29/23 17:40 17:40 17:41 WBC 10.9 H RBC 3.88 L Hgb 12.4 L Hct 38.7 L MCV 99.7 H MCH 32.0 H MCHC 32.0 RDW 12.4 Plt Count 391 MPV 9.6 Neut # (Auto) 6.8 H Lymph # (Auto) 3.0 [place] # (Auto) 0.9 Eos # (Auto) 0.2 Baso # (Auto) 0.1 Absolute Nucleated RBC 0.00 Nucleated RBC % 0.0 Sodium Potassium Chloride Carbon Dioxide Anion Gap BUN Creatinine Estimated GFR (MDRD) Glucose Calcium Magnesium Total Bilirubin AST ALT Alkaline Phosphatase Total Creatine Kinase Total Protein Albumin Globulin Albumin/Globulin Ratio Lipase TSH Free T4 Direct Urine Color DARK YELLOW Urine Clarity CLEAR Urine pH 5.5 Ur Specific Mead >=1.030 H Urine Protein 30 H Urine Glucose (UA) NEGATIVE Urine Ketones NEGATIVE Urine Occult Blood NEGATIVE Urine Nitrite NEGATIVE Urine Bilirubin SMALL H Urine Urobilinogen 0.2 (NORMAL) Ur Leukocyte Esterase NEGATIVE Urine RBC 0-5 Urine WBC 6-10 H Ur Squamous Epith Cells NONE SEEN Urine Bacteria None Seen Urine Mucus Moderate Strands Urine Sperm PRESENT Ur Microscopic Review INDICATED Urine Culture Comments NOT INDICATED Salicylates Urine Opiates Screen NEGATIVE Ur Buprenorphine Scrn NEGATIVE Ur Oxycodone Screen NEGATIVE Urine Methadone Screen NEGATIVE Acetaminophen Ur Barbiturates Screen NEGATIVE Ur Tricyclics Screen NEGATIVE Ur Phencyclidine Scrn NEGATIVE Ur Amphetamine Screen POSITIVE H U Methamphetamines Scrn POSITIVE H U Benzodiazepines Scrn NEGATIVE Urine Cocaine Screen NEGATIVE U Cannabinoids Screen POSITIVE H Ur Drug Screen Comment CUTOFF CONC BELOW: Ethyl Alcohol SARS-CoV-2 (PCR) NOT DETECTED 11/29/23 11/29/23 17:41 17:41 WBC RBC Hgb Hct MCV MCH MCHC RDW Plt Count MPV Neut # (Auto) Lymph # (Auto) [place] # (Auto) Eos # (Auto) Baso # (Auto) Absolute Nucleated RBC Nucleated RBC % Sodium 142 Potassium 3.4 L Chloride 107 Carbon Dioxide 24 Anion Gap 11.0 BUN 18 Creatinine 1.3 Estimated GFR (MDRD) 62 L Glucose 118 H Calcium 9.5 Magnesium 2.0 Total Bilirubin 0.5 AST 46 H ALT 47 Alkaline Phosphatase 68 Total Creatine Kinase 752 H Total Protein 7.7 Albumin 4.4 Globulin 3.3 Albumin/Globulin Ratio 1.3 Lipase < 10 L TSH 7.97 H Free T4 Direct 0.81 Urine Color Urine Clarity Urine pH Ur Specific Mead Urine Protein Urine Glucose (UA) Urine Ketones Urine Occult Blood Urine Nitrite Urine Bilirubin Urine Urobilinogen Ur Leukocyte Esterase Urine RBC Urine WBC Ur Squamous Epith Cells Urine Bacteria Urine Mucus Urine Sperm Ur Microscopic Review Urine Culture Comments Salicylates < 1.5 Urine Opiates Screen Ur Buprenorphine Scrn Ur Oxycodone Screen Urine Methadone Screen Acetaminophen < 0.1 Ur Barbiturates Screen Ur Tricyclics Screen Ur Phencyclidine Scrn Ur Amphetamine Screen U Methamphetamines Scrn U Benzodiazepines Scrn Urine Cocaine Screen U Cannabinoids Screen Ur Drug Screen Comment Ethyl Alcohol < 10.0 SARS-CoV-2 (PCR) PD Medical Decision Making - ED course Complexity details: reviewed results, re-evaluated patient, considered differential, d/w community resource consultant ED course: 38-year-old male brought in by police on an GAIL from the [facility] DCR. He is very uncooperative, rambling pressured speech. He keeps saying that there is an identical person with his name who the police are actually looking for and that they "have the wrong leilani". He was maintained in handcuffs by the police while the nursing staff administered ketamine for sedation. At that time approximately 10 layers of water soaked clothing were removed from the patient, changed into clean scrubs and placed into restraints. Zyprexa was also given. Blood was drawn. Patient is acutely psychotic. DCR was dispatched, but the patient could not cooperate in the interview process secondary to drowsiness, likely from the medications. Therefore the dispatch w as rescinded, will need to be recontacted when he is more awake. Suspect that he is also coming down from methamphetamines contributing to the drowsiness. Patient will be signed out to Dr. Patel overnight.Restraints were removed at approximately 9:15 PM Patient is medically clear for psychiatric care. He is positive for methamphetamines and cannabinoids on his drug screen. Departure - Departure Clinical Impression: Methamphetamine abuse Psychosis Qualifiers: Psychosis type: unspecified psychosis type Qualified Code(s): F29 - Unspecified psychosis not due to a substance or known physiological condition Condition: Stable Forms: PCP List
[2023-11-29 17:48] LABS: BASOPHILS # (AUTO) 0.1 10^3/uL (0.0-0.1); BASOPHILS % (AUTO) 0.5 %; EOSINOPHILS # (AUTO) 0.2 10^3/uL (0.0-0.7); EOSINOPHILS % (AUTO) 1.4 %; HCT - HEMATOCRIT 38.7 % (42.0-52.0); HGB - HEMOGLOBIN 12.4 g/dL (14.0-18.0); LYMPHOCYTES % (AUTO) 27.4 %; MEAN CORPUSCULAR VOLUME 99.7 fL (80.0-94.0); MEAN PLATELET VOLUME 9.6 fL (7.4-11.4); MONOCYTES # (AUTO) 0.9 10^3/uL (0.0-1.0); MONOCYTES % (AUTO) 8.3 %; NEUTROPHILS # (AUTO) 6.8 10^3/uL (1.5-6.6); NEUTROPHILS % (AUTO) 62.2 %; PLT - PLATELET COUNT 391 10^3/uL (130-450); RED BLOOD COUNT 3.88 10^6/uL (4.70-6.10); RED CELL DISTRIBUTION WIDTH 12.4 % (12.0-15.0); WHITE BLOOD COUNT 10.9 x10^3/uL (4.8-10.8)
[2023-11-29] MEDS: OLANZapine 10 MG VIAL IM STA (17:52)
[2023-11-29 18:16] LABS: THYROID STIMULATING HORMONE 7.97 uIU/mL (0.34-5.60)
[2023-11-29 18:20] LABS: ALBUMIN 4.4 g/dL (3.2-5.5); ALBUMIN/GLOBULIN RATIO 1.3 (1.0-2.2); ALKALINE PHOSPHATASE 68 IU/L (42-121); ALT ALANINE AMINOTRANSFERASE 47 IU/L (10-60); AST ASPARTATE AMINOTRANSFERASE 46 IU/L (10-42); BILIRUBIN,TOTAL 0.5 mg/dL (0.2-1.0); BUN - BLOOD UREA NITROGEN 18 mg/dL (6-20); CALCIUM 9.5 mg/dL (8.5-10.3); CARBON DIOXIDE - CO2 24 mmol/L (21-32); CHLORIDE 107 mmol/L (101-111); CK- CREATINE KINASE 752 IU/L (30-223); CREATININE 1.3 mg/dL (0.6-1.3); ETOH - ETHANOL < 10.0 mg/dL; GFR - MDRD 62 (>89); GLUCOSE 118 mg/dL (74-104); POTASSIUM 3.4 mmol/L (3.5-4.5); SODIUM 142 mmol/L (135-145); TOTAL PROTEIN 7.7 g/dL (6.4-8.9)
[2023-11-29 18:21] LABS: ACETAMINOPHEN < 0.1 ug/mL; LIPASE < 10 U/L (11-82); SALICYLATE < 1.5 mg/dL
[2023-11-29 18:39] LABS: BILIRUBIN,URINE SMALL (NEGATIVE); GLUCOSE, URINE (UA) NEGATIVE (NEGATIVE); KETONES,URINE (UA) NEGATIVE (NEGATIVE); LEUKOCYTE ESTERASE, URINE NEGATIVE (NEGATIVE); NITRITE,URINE NEGATIVE (NEGATIVE); OCCULT BLOOD,URINE NEGATIVE (NEGATIVE); PH,URINE 5.5 PH (5.0-7.5); PROTEIN,URINE 30 mg/dL (NEGATIVE); UROBILINOGEN,URINE 0.2 (NORMAL) E.U./dL (NORMAL)
[2023-11-29 18:42] LABS: CLARITY,URINE CLEAR (CLEAR)
[2023-11-29 18:47] LABS: BACTERIA,URINE None Seen /HPF (None Seen); MUCUS,URINE Moderate Strands; RBC,URINE 0-5 /HPF (0-5); SQUAMOUS EPITHELIAL CELL,UR NONE SEEN (<= Few)
[2023-11-29 18:48] LABS: SPERM,URINE PRESENT
[2023-11-29 18:50] LABS: AMPHETAMINE SCREEN,URINE POSITIVE (NEGATIVE); BARBITURATE SCREEN,UR NEGATIVE (NEGATIVE); BENZODIAZEPINES SCREEN, URINE NEGATIVE (NEGATIVE); BUPRENORPHINE SCREEN, URINE NEGATIVE (NEGATIVE); COCAINE SCREEN URINE NEGATIVE (NEGATIVE); METHADONE SCREEN, URINE NEGATIVE (NEGATIVE); METHAMPHETAMINES SCREEN, URINE POSITIVE (NEGATIVE); OPIATE SCREEN, URINE NEGATIVE (NEGATIVE); OXYCODONE SCREEN, URINE NEGATIVE (NEGATIVE); THC CANNABINOID SCREEN, URINE POSITIVE (NEGATIVE); TRICYCLIC ANTIDEPRESSANT,URINE NEGATIVE (NEGATIVE)
--- NOTE | 2023-11-29 18:52 | ED Physician Documentation ---
Restraint [id number] - Immediate Situation Face to Face Evaluation Date: 11/29/23 Face to Face Evaluation Time: 18:04 Restraint Classification: Violent, physical, chemical - Patient's Reaction & Behaviors Safety: Physically safe Other: Resting quietly (sedated) - Behavioral Condition Attitude: Other (sedated) Behavior: Other (sedated) Orientation: Disoriented to all (sedated) Mood: Other (sedated) - Evaluation Current Medical Condition Relating to Need for Restraint: psychosis Pertinent History/Illicit Drugs/Medications/Results: see H&P - Plan Need to Initiate/Renew Violent or Chemical Restraint: continue
--- NOTE | 2023-11-30 06:56 | ED Physician Documentation ---
ED Addendum - Addendum Addendum: 11/30/23 06:56 JAYDE. Patient will be endorsed to incoming daytime ED MD at 7am shift change.
--- NOTE | 2023-11-30 08:42 | ED Physician Documentation ---
ED Addendum - Addendum Addendum: 11/30/23 Patient care assumed at shift change. Patient has been boarding overnight in the emergency department awaiting DCR evaluation once he is more awake and able to have a conversation. Patient was brought to the emergency room yesterday with concerns for grave disability related to acute psychosis and methamphetamine abuse. He required IM ketamine and Zyprexa for chemical sedation. DCR was unable to interview him yesterday and thus have requested we reach dispatch them out once he is able to converse. This morning he is sitting up has said a few words to his nurse and we will read dispatch DCR. 11/30/23 10:20 - AYSE Whittington is here to see the patient 11/30/23 11:03 - DCR is planning to detain him. Since being aware of this, patient has become more focal, using a raised voice, pacing around in the room. Will offer a dose of p.o. Zyprexa for agitation and to help calm him down. This is not used as a chemical restraint. Pt declined zyprexa. Pt was accepted to [place] and transported by [facility]. Departure - Departure Disposition: [facility] Psych Hosp/Unit DC/Xfer Clinical Impression: Methamphetamine abuse Psychosis Qualifiers: Psychosis type: unspecified psychosis type Qualified Code(s): F29 - Unspecified psychosis not due to a substance or known physiological condition Condition: Stable Forms: PCP List
[2023-11-30] MEDS: OLANZapine ODT 5 MG TABLET TL STA (14:58)
[2023-11-30 15:19] VITALS: BP 130/93; O2SAT 99
== END 2023-11-30 14:45 ==
LOC: EDUNIT# → EDBD → ED 17:09
DX: F29 Unspecified psychosis not due to a substance or known physiological condition (principal); F15.10 Other stimulant abuse, uncomplicated; F12.90 Cannabis use, unspecified, uncomplicated; F17.200 Nicotine dependence, unspecified, uncomplicated; Z78.1 Physical restraint status
CPT/HCPCS: 36415; 51701; 80053; 80143; 80179; 80306; 81001; 81003; 82077; 82550; 83690; 83735; 84439; 84443; 85025; 87086; 87635; 93005; 99284; 99285